=== PATIENT | female | born 1985 | race Caucasian/White ===

== ENCOUNTER 2017-11-03 15:40 | Emergency (ER) | payer MEDICAID ==
[2017-11-03] MEDS: KETOROLAC 15 MG INJ IM (18:12)
[2017-11-03] MEDS: CYCLOBENZAPRINE 10 MG TAB PO (18:12)
== END 2017-11-03 18:32 | disposition home or self-care (01) ==
LOC: FTE 15:40
DX: M54.42 Lumbago with sciatica, left side (principal)
CPT/HCPCS: 81025; 96372; 99284-25